=== PATIENT | male | born 2000 | race Two or more races ===

== ENCOUNTER 2023-01-15 06:44 | Emergency (ER) | payer MEDICAID, OTHER ==
[~2023-01-15] VITALS: Ht 177.8 cm; Wt 63.5 kg
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
[2023-01-15] MEDS ORDERED: CEPH500C2 PO (07:38)
[2023-01-15] MEDS ORDERED: SULF1TAB48 PO (07:38)
[2023-01-15] MEDS ORDERED: SULFAMETH/TRIMETH 800/160 MG 1 UDTAB TABLET ONE (07:58)
[2023-01-15] MEDS ORDERED: CEPHALEXIN MONOHYDRATE 500 MG CAPSULE PO ONE ×2 (07:58→08:00)
[2023-01-15] MEDS ORDERED: SULFAMETH/TRIMETH 800/160 MG 1 UDTAB TABLET PO ONE (08:00)
--- NOTE | 2023-01-15 08:06 | NUR ---
keflex and bactrim po given as indicated, bianca well.
[2023-01-15 08:59] VITALS: BP 118/77
--- NOTE | 2023-01-15 09:00 | NUR ---
Patient discharged to home in stable condition. Written and verbal after care instructions given. Patient verbalizes understanding of instruction.
== END 2023-01-15 09:00 | disposition home or self-care (01) ==
LOC: ER 06:46
DX: S09.90XA Unspecified injury of head, initial encounter (principal); H60.12 Cellulitis of left external ear; R22.0 Localized swelling, mass and lump, head; F17.200 Nicotine dependence, unspecified, uncomplicated; Z59.00 Homelessness unspecified; Y00.XXXA Assault by blunt object, initial encounter; Y93.89 Activity, other specified; Y92.89 Other specified places as the place of occurrence of the external cause; Y99.8 Other external cause status
CPT/HCPCS: 70450-TC